=== PATIENT | male | born 1930 | race Caucasian/White ===

== ENCOUNTER 2018-12-14 16:41 | Emergency (ER) | payer SELFPAY ==
[~2018-12-14] VITALS: Ht 182.9 cm; Wt 70.3 kg
--- NOTE | 2018-12-14 17:00 | NUR ---
patient presented to the ER from dialysis center c/o of pain and bleeding. on room air, breathing evenly and unlabored. connected to the monitor, and pulse ox. kept comfrotable. will continue to monitor accordingly.
--- NOTE | 2018-12-14 17:15 | NUR ---
DR BIRCH AT [facility] Addendum: 12/14/18 at [address] BIRCH AT [facility]
[2018-12-14] MEDS ORDERED: HYDROCODONE/APAP 10/325MG 1 EA TABLET ONE (17:22)
[2018-12-14] MEDS ORDERED: HYDROCODONE/APAP 10/325MG 1 EA TABLET PO ONE (17:30)
[2018-12-14 17:34] LABS: BASOPHILS # (AUTO) 0.1 /CMM (0.0-0.2); BASOPHILS % (AUTO) 1.2 % (0.0-2.0); HEMATOCRIT 37 % (39-51); HEMOGLOBIN 12.1 g/dL (13.5-17.5); LYMPHOCYTES # (AUTO) 0.7 /CMM (0.8-4.8); LYMPHOCYTES % (AUTO) 9.1 % (20.0-44.0); MEAN CORPUSCULAR HGB CONC 33 g/dl (31.0-36.0); MEAN CORPUSCULAR VOLUME 101 fL (80-96); MONOCYTES # (AUTO) 0.8 /CMM (0.1-1.30); MONOCYTES % (AUTO) 9.9 % (2.0-12.0); NEUTROPHILS # (AUTO) 6.1 /CMM (1.8-8.9); NEUTROPHILS % (AUTO) 77.8 % (43.0-81.0); PLATELET COUNT (AUTO) 158 /CMM (150-450); RED BLOOD CELL COUNT(AUTO) 3.63 MIL/uL (4.5-6.0); WHITE BLOOD COUNT (AUTO) 7.8 K/uL (4.3-11.0)
[2018-12-14 17:45] LABS: CALCIUM, SERUM 9.4 mg/dL (8.5-10.1); CARBON DIOXIDE 27 mmol/L (21-32); CHLORIDE 102 mmol/L (98-107); CREATININE 2.2 mg/dL (0.6-1.3); GLUCOSE 115 mg/dL (74-106); POTASSIUM 5.2 mmol/L (3.5-5.1); SODIUM SERUM 137 mmol/L (136-145); UREA NITROGEN, BLOOD 45 mg/dL (7-18)
--- NOTE | 2018-12-14 18:43 | NUR ---
PTT > 170 DR. BIRCH MADE AWARE.
--- NOTE | 2018-12-14 19:20 | NUR ---
REPORT RECIEVED FROM NANY JETT FOR [facility].
--- NOTE | 2018-12-14 19:20 | NUR ---
CLAMPS RELEASED, NO BLEEDING NOTED. WILL OBSERVE.
--- NOTE | 2018-12-14 19:30 | NUR ---
Endorsed given to kim diaz for snow.
--- NOTE | 2018-12-14 20:00 | NUR ---
No bleeding noted. ER Aware.
--- NOTE | 2018-12-14 20:15 | NUR ---
Patient discharged to home in stable condition. Written and verbal after care instructions given. Patient verbalizes understanding of instruction. IV removed. Catheter intact and site benign. Pressure and 4x4 applied to site. No bleeding noted.
[2018-12-14 20:19] VITALS: BP 124/66
== END 2018-12-14 20:21 | disposition home or self-care (01) ==
LOC: ER 16:43
DX: T82.591A Other mechanical complication of surgically created arteriovenous shunt, initial encounter (principal); N18.6 End stage renal disease; Z99.2 Dependence on renal dialysis
CPT/HCPCS: 36415; 80048-TC; 85025-TC; 85730-TC; A6402; A6403